=== PATIENT | female | born 1975 | race African-American/Black ===

== ENCOUNTER 2020-10-23 09:23 | Emergency (ER) | payer MEDICAID ==
[~2020-10-23] VITALS: Ht 177.8 cm; Wt 66.4 kg
--- NOTE | 2020-10-23 09:36 | NUR ---
Pt ambulatory to room with steady gait.
--- NOTE | 2020-10-23 09:54 | NUR ---
ERP to bedside.
--- NOTE | 2020-10-23 10:05 | NUR ---
Pt states the a "400lb handicap door fell" on her at the [facility]. "No one helped me, I lefted it up myself." This happened on Thursday, she has not been seen for medical advice until this visit. Pt states she came because her pain is increasing.
--- NOTE | 2020-10-23 11:15 | NUR ---
Pt to imaging.
--- NOTE | 2020-10-23 11:35 | NUR ---
Pt back from imaging,
[2020-10-23 13:27] VITALS: BP 128/78
== END 2020-10-23 13:29 | disposition home or self-care (01) ==
LOC: ED 10:12
DX: S39.012A Strain of muscle, fascia and tendon of lower back, initial encounter (principal); S50.01XA Contusion of right elbow, initial encounter; M19.021 Primary osteoarthritis, right elbow; F17.200 Nicotine dependence, unspecified, uncomplicated; W18.30XA Fall on same level, unspecified, initial encounter; Y93.89 Activity, other specified; Y92.89 Other specified places as the place of occurrence of the external cause; Y99.8 Other external cause status
CPT/HCPCS: 72110; 99284